=== PATIENT | female | born 1940 | race African-American/Black ===

== ENCOUNTER 2018-06-30 11:58 | Inpatient (IN) | payer MEDICARE, MEDICAID ==
[~2018-06-30] VITALS: Ht 165.1 cm; Wt 79.0 kg
[~2018-06-30 11:58] MED LIST: ALPR-339 PO; AMLO5TAB88 PO; BISA-81 PO; CLON0.3T PO; LOSA100T14 PO
[2018-06-30 12:43] LABS: BASOPHILS % 0.9 % (0.0-2.0); EOSINOPHILS % 3.3 % (0.0-5.0); HEMATOCRIT. 38.5 % (36.0-48.0); HEMOGLOBIN. 12.4 g/dL (12.0-16.0); LYMPHOCYTES % 36.3 % (20.0-50.0); MEAN CORPUSCULAR HEMOGLOBIN 28.3 pg (28.0-32.0); MEAN CORPUSCULAR VOLUME 87.6 fL (81.0-99.0); MONOCYTES % 8.2 % (2.0-8.0); NEUTROPHILS % 51.3 % (40.0-76.0); PLATELET 212 x1000/uL (130-400); RED BLOOD CELL COUNT 4.39 mill/uL (4.2-5.4); RED CELL DISTRIBUTION WIDTH 13.8 % (11.6-14.6)
[2018-06-30 12:48] LABS: CHLORIDE 106 mEq/L (98-107)
[2018-06-30 12:49] LABS: PROTHROMBIN TIME 9.8 sec (9.1-11.1)
[2018-06-30 12:57] LABS: LDL CHOLESTEROL 177 mg/dL (5-100)
[2018-06-30] MEDS ORDERED: LABETALOL HCL 20MG/4ML CARPUJECT IV ONE (13:00)
[2018-06-30] MEDS ORDERED: LABETALOL 5MG/ML SYR 20 MG/4 ML SYRINGE IV NR (13:15)
[2018-06-30 14:22] LABS: CLARITY URINE CLEAR (CLEAR); COLOR URINE YELLOW (YELLOW); KETONES URINE NEGATIVE (NEGATIVE); LEUKOCYTE ESTERASE URINE NEGATIVE (NEGATIVE); NITRITE URINE NEGATIVE (NEGATIVE); OCCULT BLOOD URINE NEGATIVE (NEGATIVE); PROTEIN URINE TRACE (NEGATIVE); SPECIFIC GRAVITY URINE 1.006 (1.005-1.030); UROBILINOGEN URINE 0.2 E.U./dL (0.2-1.0)
[2018-06-30] MEDS ORDERED: AMLODIPINE 5MG TABLET PO NR (14:45)
[2018-06-30] MEDS ORDERED: CLONIDINE 0.2MG TABLET PO NR (14:45)
[2018-06-30] MEDS ORDERED: ONDANSETRON HCL 4MG/2ML INJ IV PRN (14:45)
[2018-06-30] MEDS ORDERED: LOSARTAN POTASSIUM 100 MG TABLET PO SCH (14:45)
[2018-06-30] MEDS: AMLODIPINE 5MG TABLET PO SCH (21:04)
[2018-06-30 22:00] VITALS: BP_SYST 167; BP_SYST 171; BP_DIAS 79; BP_DIAS 80
[2018-06-30] MEDS ORDERED: CLONIDINE 0.3MG TABLET PO SCH (22:00)
[2018-06-30] MEDS: LOSARTAN POTASSIUM 100 MG TABLET PO SCH (22:35)
[2018-06-30] MEDS: CLONIDINE 0.2MG TABLET PO SCH (22:36)
[2018-06-30 23:25] VITALS: BP 161/88
[2018-06-30] MEDS: ACETAMINOPHEN 325MG TABLET PO PRN (23:27)
[2018-07-01] VITALS (68 sets, daily range): BP systolic 93–212; BP diastolic 26–101
[2018-07-01] MEDS ORDERED: AMLO10TA80 PO (02:37)
[2018-07-01] MEDS ORDERED: ASPI-1158 PO (02:37)
[2018-07-01] MEDS ORDERED: FURO20TA4 PO (02:37)
[2018-07-01] MEDS ORDERED: NAPR-681 PO (02:37)
[2018-07-01] MEDS ORDERED: ALBU18HF2 IH (02:37)
[2018-07-01] MEDS ORDERED: LIDO700A30 TP (02:37)
[2018-07-01 05:57] LABS: BASOPHILS % 0.6 % (0.0-2.0); EOSINOPHILS % 3.6 % (0.0-5.0); HEMOGLOBIN. 12.2 g/dL (12.0-16.0); LYMPHOCYTES % 35.7 % (20.0-50.0); MEAN CORPUSCULAR HEMOGLOBIN 28.7 pg (28.0-32.0); MEAN CORPUSCULAR VOLUME 87.1 fL (81.0-99.0); MEAN PLATELET VOLUME 7.4 fl (7.4-10.4); MONOCYTES % 9.5 % (2.0-8.0); NEUTROPHILS % 50.6 % (40.0-76.0); PLATELET 200 x1000/uL (130-400); RED BLOOD CELL COUNT 4.24 mill/uL (4.2-5.4); RED CELL DISTRIBUTION WIDTH 13.9 % (11.6-14.6)
[2018-07-01] MEDS ORDERED: NICARDIPINE 50 MG in SODIUM CHLORIDE 0.9% 230 ML IV PRN (06:30)
[2018-07-01 06:32] LABS: CHLORIDE 108 mEq/L (98-107)
[2018-07-01 06:39] LABS: LDL CHOLESTEROL 161 mg/dL (5-100)
[2018-07-01 06:41] LABS: HDL CHOLESTEROL 55 mg/dL (40-59)
[2018-07-01] MEDS: CLONIDINE 0.2MG TABLET PO SCH ×3 (07:17→21:55)
[2018-07-01] MEDS ORDERED: ASPIRIN 325MG EC TABLET PO SCH (09:00)
[2018-07-01] MEDS: AMLODIPINE 5MG TABLET PO SCH ×2 (09:45→20:25)
[2018-07-01] MEDS: CLOPIDOGREL 75MG TABLET PO SCH (09:45)
[2018-07-01] MEDS: LOSARTAN POTASSIUM 100 MG TABLET PO SCH (09:46)
[2018-07-01 09:50] LABS: T4 FREE 1.05 ng/dL (0.76-1.46)
[2018-07-01 10:21] LABS: FOLIC ACID (FOLATE) SERUM 19.6 ng/mL (>5.38)
[2018-07-01] MEDS ORDERED: HYDRALAZINE HCL 25MG TABLET PO SCH (14:00)
[2018-07-01 14:28] LABS: *AMPHETAMINES SCREEN URINE NEGATIVE (NEGATIVE); *BARBITURATES SCREEN URINE NEGATIVE (NEGATIVE); *BENZODIAZEPINES SCREEN URINE NEGATIVE (NEGATIVE); *COCAINE SCREEN URINE NEGATIVE (NEGATIVE); METHADONE URINE SCREEN NEGATIVE (NEGATIVE); OPIATES URINE SCREEN NEGATIVE (NEGATIVE)
[2018-07-01 14:29] LABS: CANNABINOID URINE SCREEN NEGATIVE (NEGATIVE); PHENCYCLIDINE URINE SCREEN NEGATIVE (NEGATIVE)
[2018-07-01] MEDS: ACETAMINOPHEN 325MG TABLET PO PRN (20:23)
[2018-07-01] MEDS: ALPRAZOLAM 0.25 MG TABLET PO PRN (20:24)
[2018-07-01] MEDS: ATORVASTATIN CALCIUM 20MG TABLET PO SCH (21:55)
[2018-07-02] VITALS (72 sets, daily range): BP systolic 97–210; BP diastolic 48–93
[2018-07-02] MEDS: CLONIDINE 0.1MG TABLET PO PRN (04:48)
[2018-07-02 05:49] LABS: BASOPHILS % 0.8 % (0.0-2.0); EOSINOPHILS % 3.9 % (0.0-5.0); HEMATOCRIT. 37.9 % (36.0-48.0); HEMOGLOBIN. 12.4 g/dL (12.0-16.0); LYMPHOCYTES % 30.4 % (20.0-50.0); MEAN CORPUSCULAR HEMOGLOBIN 28.6 pg (28.0-32.0); MEAN CORPUSCULAR VOLUME 87.6 fL (81.0-99.0); MEAN PLATELET VOLUME 7.8 fl (7.4-10.4); MONOCYTES % 9.7 % (2.0-8.0); NEUTROPHILS % 55.2 % (40.0-76.0); PLATELET 195 x1000/uL (130-400); RED BLOOD CELL COUNT 4.32 mill/uL (4.2-5.4); RED CELL DISTRIBUTION WIDTH 13.7 % (11.6-14.6)
[2018-07-02] MEDS: CLONIDINE 0.2MG TABLET PO SCH (06:00)
[2018-07-02] MEDS: CLOPIDOGREL 75MG TABLET PO SCH (09:08)
[2018-07-02] MEDS: LOSARTAN POTASSIUM 50 MG TABLET PO SCH (09:17)
[2018-07-02] MEDS: AMLODIPINE 2.5MG TABLET PO SCH ×2 (09:17→20:49)
[2018-07-02] MEDS ORDERED: LACTULOSE 20G/30ML UDC PO PRN (10:45)
[2018-07-02] MEDS: CLONIDINE 0.1MG TABLET PO SCH ×2 (14:41→22:33)
[2018-07-02] MEDS: DOCUSATE SODIUM 100MG CAPSULE PO SCH (17:03)
[2018-07-02] MEDS: ATORVASTATIN CALCIUM 20MG TABLET PO SCH (20:48)
[2018-07-02] MEDS: ACETAMINOPHEN 325MG TABLET PO PRN (20:48)
[2018-07-02] MEDS: ALPRAZOLAM 0.25 MG TABLET PO PRN (20:50)
[2018-07-03] VITALS (45 sets, daily range): BP systolic 121–206; BP diastolic 49–126
[2018-07-03] MEDS: CLONIDINE 0.1MG TABLET PO SCH ×3 (05:09→20:50)
[2018-07-03] MEDS: ALPRAZOLAM 0.25 MG TABLET PO PRN ×2 (05:17→22:48)
[2018-07-03 05:20] LABS: BASOPHILS % 0.8 % (0.0-2.0); EOSINOPHILS % 3.6 % (0.0-5.0); HEMATOCRIT. 36.6 % (36.0-48.0); HEMOGLOBIN. 12.1 g/dL (12.0-16.0); LYMPHOCYTES % 30.9 % (20.0-50.0); MEAN CORPUSCULAR HEMOGLOBIN 28.8 pg (28.0-32.0); MEAN CORPUSCULAR VOLUME 87.3 fL (81.0-99.0); MEAN PLATELET VOLUME 7.7 fl (7.4-10.4); MONOCYTES % 9.6 % (2.0-8.0); NEUTROPHILS % 55.1 % (40.0-76.0); PLATELET 197 x1000/uL (130-400); RED CELL DISTRIBUTION WIDTH 13.9 % (11.6-14.6)
[2018-07-03] MEDS: DOCUSATE SODIUM 100MG CAPSULE PO SCH ×2 (09:22→17:40)
[2018-07-03] MEDS: LOSARTAN POTASSIUM 50 MG TABLET PO SCH (09:22)
[2018-07-03] MEDS: CLOPIDOGREL 75MG TABLET PO SCH (09:23)
[2018-07-03] MEDS: AMLODIPINE 2.5MG TABLET PO SCH ×2 (09:23→20:50)
[2018-07-03] MEDS: CLONIDINE 0.1MG TABLET PO PRN (11:43)
[2018-07-03] MEDS: ACETAMINOPHEN 325MG TABLET PO PRN (11:57)
[2018-07-03] MEDS: ASPIRIN 81MG EC TABLET PO SCH (14:33)
[2018-07-03] MEDS: ATORVASTATIN CALCIUM 40MG TABLET PO SCH (20:50)
[2018-07-04] VITALS (34 sets, daily range): BP systolic 109–170; BP diastolic 49–121
[2018-07-04] MEDS: CLONIDINE 0.1MG TABLET PO PRN (03:36)
[2018-07-04 05:31] LABS: BASOPHILS % 0.9 % (0.0-2.0); EOSINOPHILS % 2.8 % (0.0-5.0); HEMATOCRIT. 37.5 % (36.0-48.0); HEMOGLOBIN. 12.3 g/dL (12.0-16.0); LYMPHOCYTES % 31.3 % (20.0-50.0); MEAN CORPUSCULAR HEMOGLOBIN 28.7 pg (28.0-32.0); MEAN CORPUSCULAR VOLUME 87.4 fL (81.0-99.0); MONOCYTES % 10.7 % (2.0-8.0); NEUTROPHILS % 54.3 % (40.0-76.0); PLATELET 195 x1000/uL (130-400); RED BLOOD CELL COUNT 4.29 mill/uL (4.2-5.4); RED CELL DISTRIBUTION WIDTH 13.7 % (11.6-14.6)
[2018-07-04] MEDS: CLONIDINE 0.1MG TABLET PO SCH ×3 (06:32→21:22)
[2018-07-04] MEDS: DOCUSATE SODIUM 100MG CAPSULE PO SCH ×2 (09:04→16:56)
[2018-07-04] MEDS: LOSARTAN POTASSIUM 50 MG TABLET PO SCH (09:04)
[2018-07-04] MEDS: ASPIRIN 81MG EC TABLET PO SCH (09:04)
[2018-07-04] MEDS: CLOPIDOGREL 75MG TABLET PO SCH (09:04)
[2018-07-04] MEDS: AMLODIPINE 2.5MG TABLET PO SCH ×2 (09:07→20:39)
[2018-07-04] MEDS: ALPRAZOLAM 0.25 MG TABLET PO PRN ×2 (12:57→23:44)
[2018-07-04] MEDS: ACETAMINOPHEN 325MG TABLET PO PRN (16:57)
[2018-07-04] MEDS: LACTULOSE 20G/30ML UDC PO SCH ×2 (17:43→20:39)
[2018-07-04] MEDS: ATORVASTATIN CALCIUM 40MG TABLET PO SCH (20:39)
[2018-07-04] MEDS ORDERED: POLYETHYLENE GLYCOL 3350 (17GM) 1 DOSE PACK PO SCH (21:00)
[2018-07-05] VITALS (8 sets, daily range): BP systolic 122–191; BP diastolic 57–96
[2018-07-05] MEDS: CLONIDINE 0.1MG TABLET PO SCH ×2 (05:23→13:05)
[2018-07-05 06:06] LABS: BASOPHILS % 0.9 % (0.0-2.0); EOSINOPHILS % 2.4 % (0.0-5.0); HEMATOCRIT. 37.6 % (36.0-48.0); HEMOGLOBIN. 12.2 g/dL (12.0-16.0); LYMPHOCYTES % 28.6 % (20.0-50.0); MEAN CORPUSCULAR HEMOGLOBIN 28.5 pg (28.0-32.0); MEAN CORPUSCULAR VOLUME 87.6 fL (81.0-99.0); MEAN PLATELET VOLUME 7.9 fl (7.4-10.4); MONOCYTES % 9.3 % (2.0-8.0); NEUTROPHILS % 58.8 % (40.0-76.0); PLATELET 196 x1000/uL (130-400); RED BLOOD CELL COUNT 4.29 mill/uL (4.2-5.4); RED CELL DISTRIBUTION WIDTH 13.8 % (11.6-14.6)
[2018-07-05] MEDS: LACTULOSE 20G/30ML UDC PO SCH (08:35)
[2018-07-05] MEDS: CLOPIDOGREL 75MG TABLET PO SCH (08:39)
[2018-07-05] MEDS: DOCUSATE SODIUM 100MG CAPSULE PO SCH (08:39)
[2018-07-05] MEDS: ASPIRIN 81MG EC TABLET PO SCH (08:39)
[2018-07-05] MEDS: LOSARTAN POTASSIUM 50 MG TABLET PO SCH (08:39)
[2018-07-05] MEDS: AMLODIPINE 2.5MG TABLET PO SCH (08:40)
[2018-07-05] MEDS: ALPRAZOLAM 0.25 MG TABLET PO PRN (13:05)
[2018-07-05] MEDS: ACETAMINOPHEN 325MG TABLET PO PRN (13:05)
== END 2018-07-05 15:35 | disposition home health service (06) | DRG 304 ==
LOC: ER 11:58 → 3WST 13:31 → EDBEDREQ 13:44 → ENRESERV 20:14 → MICUSO 07-01 06:30 → 3WST 07-04 13:55
PROVIDERS: ADMIT Internal Medicine Nephrology; ATTEND Internal Medicine Nephrology
DX: I16.1 Hypertensive emergency (principal); I63.9 Cerebral infarction, unspecified; G81.94 Hemiplegia, unspecified affecting left nondominant side; R47.01 Aphasia; E78.00 Pure hypercholesterolemia, unspecified; E78.5 Hyperlipidemia, unspecified; N18.9 Chronic kidney disease, unspecified; E11.22 Type 2 diabetes mellitus with diabetic chronic kidney disease; G90.8 Other disorders of autonomic nervous system; I95.9 Hypotension, unspecified; I13.10 Hypertensive heart and chronic kidney disease without heart failure, with stage 1 through stage 4 chronic kidney disease, or unspecified chronic kidney disease; I25.10 Atherosclerotic heart disease of native coronary artery without angina pectoris; J44.9 Chronic obstructive pulmonary disease, unspecified; K80.20 Calculus of gallbladder without cholecystitis without obstruction; R13.10 Dysphagia, unspecified; R47.1 Dysarthria and anarthria; Z86.73 Personal history of transient ischemic attack (TIA), and cerebral infarction without residual deficits; Z87.891 Personal history of nicotine dependence; Z95.0 Presence of cardiac pacemaker; Z88.5 Allergy status to narcotic agent; Z88.6 Allergy status to analgesic agent; Z79.82 Long term (current) use of aspirin; Z79.899 Other long term (current) drug therapy; Z87.440 Personal history of urinary (tract) infections
CPT/HCPCS: 36415; 71045; 74176; 76770; 80048; 80061; 80305; 82607; 82746; 82962; 83036; 83721; 84439; 84443; 84481; 84484; 87077; 92610; 93005; 93306; 93880; 93970; 96374; 97112; 97116; 97163; 97166; 97530; 97535; 99291; J3490; J7050

== ENCOUNTER 2021-02-26 20:08 | Emergency (ER) | payer MEDICARE, MEDICAID ==
[~2021-02-26] VITALS: Ht 162.6 cm; Wt 65.0 kg
[~2021-02-26 20:08] MED LIST changes: +ALBU18HF2 IH; +ALPR-340 PO; +AMLO10TA80 PO; +ASPI-1406 PO; +CHOL200074 PO; +CLON0.2T PO; +DOCU100T PO; +FURO20TA4 PO; +LIDO700A30 TP; -LOSA100T14 PO; +LOSA100T32 PO; +LOSA50TA41 PO; +NAPR-681 PO; +NITR0.4T49 SL; +VIT1TABL86 MT
[2021-02-26] MEDS ORDERED: ALPRAZOLAM 0.25 MG TABLET PO ONE (21:15)
[2021-02-26 21:31] LABS: BASOPHILS % 0.6 % (0.0-2.0); EOSINOPHILS % 1.6 % (0.0-5.0); HEMATOCRIT. 34.8 % (36.0-48.0); HEMOGLOBIN. 11.7 g/dL (12.0-16.0); LYMPHOCYTES % 18.6 % (20.0-50.0); MEAN CORPUSCULAR HEMOGLOBIN 29.7 pg (28.0-32.0); MEAN CORPUSCULAR VOLUME 88.6 fL (81.0-99.0); MEAN PLATELET VOLUME 6.9 fl (7.4-10.4); MONOCYTES % 8.9 % (2.0-8.0); NEUTROPHILS % 70.3 % (40.0-76.0); PLATELET 183 x1000/uL (130-400); RED BLOOD CELL COUNT 3.93 mill/uL (4.2-5.4); RED CELL DISTRIBUTION WIDTH 13.6 % (11.6-14.6)
[2021-02-26 21:35] LABS: CHLORIDE 98 mEq/L (98-107)
[2021-02-26 23:00] VITALS: BP 139/86
== END 2021-02-26 23:45 | disposition home or self-care (01) ==
LOC: ER 20:08
DX: R53.83 Other fatigue (principal); I10 Essential (primary) hypertension; Z88.5 Allergy status to narcotic agent; Z79.899 Other long term (current) drug therapy; Z86.73 Personal history of transient ischemic attack (TIA), and cerebral infarction without residual deficits
CPT/HCPCS: 36415; 80053; 84484; 85025; 93005; 99284

== ENCOUNTER 2021-08-17 18:14 | Emergency (ER) | payer MEDICARE, MEDICAID ==
[~2021-08-17] VITALS: Ht 170.2 cm; Wt 66.0 kg
[2021-08-17] MEDS ORDERED: METOCLOPRAMIDE HCL 10MG/2ML VIAL IV STA (19:00)
[2021-08-17] MEDS ORDERED: SODIUM CHLORIDE 0.9% 1,000 ML IV ONE (19:00)
[2021-08-17 20:39] LABS: BASOPHILS % 0.4 % (0.0-2.0); EOSINOPHILS % 0.2 % (0.0-5.0); HEMATOCRIT. 36.7 % (36.0-48.0); HEMOGLOBIN. 12.6 g/dL (12.0-16.0); LYMPHOCYTES % 8.5 % (20.0-50.0); MEAN CORPUSCULAR HEMOGLOBIN 30.6 pg (28.0-32.0); MEAN CORPUSCULAR VOLUME 88.9 fL (81.0-99.0); MEAN PLATELET VOLUME 7.6 fl (7.4-10.4); MONOCYTES % 6.6 % (2.0-8.0); NEUTROPHILS % 84.3 % (40.0-76.0); PLATELET 179 x1000/uL (130-400); RED BLOOD CELL COUNT 4.13 mill/uL (4.2-5.4); RED CELL DISTRIBUTION WIDTH 13.5 % (11.6-14.6)
[2021-08-17] MEDS ORDERED: METOCLOPRAMIDE HCL 10MG/2ML VIAL IV NR (20:45)
[2021-08-17 21:23] LABS: CHLORIDE 107 mEq/L (98-107)
[2021-08-17] MEDS ORDERED: HYDRALAZINE 20MG/ML VIAL IV ONE (21:45)
[2021-08-17] MEDS ORDERED: MAGNESIUM CITRATE 300ML SOLUTION PO ONE (21:45)
[2021-08-17 22:30] VITALS: BP 175/76
[2021-08-18 07:14] LABS: CLARITY URINE CLEAR (CLEAR); COLOR URINE YELLOW (YELLOW); KETONES URINE NEGATIVE (NEGATIVE); LEUKOCYTE ESTERASE URINE NEGATIVE (NEGATIVE); NITRITE URINE NEGATIVE (NEGATIVE); OCCULT BLOOD URINE NEGATIVE (NEGATIVE); PH URINE 5.5 (4.5-8.0); PROTEIN URINE NEGATIVE (NEGATIVE); SPECIFIC GRAVITY URINE 1.007 (1.005-1.030); UROBILINOGEN URINE 0.2 E.U./dL (0.2-1.0)
== END 2021-08-17 22:30 | disposition home or self-care (01) ==
LOC: ER 18:14
DX: K59.00 Constipation, unspecified (principal); I11.0 Hypertensive heart disease with heart failure; I50.9 Heart failure, unspecified; Z95.0 Presence of cardiac pacemaker; Z86.73 Personal history of transient ischemic attack (TIA), and cerebral infarction without residual deficits
CPT/HCPCS: 36415; 74176; 80053; 81003; 83690; 84484; 85025; 96361; 96374; 96375; 99284; J0360; J2765; J7030

== ENCOUNTER 2022-01-01 13:10 | Inpatient (IN) | payer MEDICARE, MEDICAID ==
[~2022-01-01] VITALS: Ht 165.1 cm; Wt 64.4 kg
[~2022-01-01 13:10] MED LIST changes: +CLOP75TA33 PO
[2022-01-01] MEDS ORDERED: ALPRAZOLAM 0.25 MG TABLET PO ONE (14:00)
[2022-01-01 14:41] LABS: EOSINOPHILS % 3.4 % (0.0-5.0); HEMATOCRIT. 33.8 % (36.0-48.0); HEMOGLOBIN. 11.2 g/dL (12.0-16.0); LYMPHOCYTES % 19.4 % (20.0-50.0); MEAN CORPUSCULAR HEMOGLOBIN 28.7 pg (28.0-32.0); MEAN CORPUSCULAR VOLUME 87.1 fL (81.0-99.0); MEAN PLATELET VOLUME 7.6 fl (7.4-10.4); MONOCYTES % 10.9 % (2.0-8.0); NEUTROPHILS % 65.3 % (40.0-76.0); PLATELET 186 x1000/uL (130-400); RED BLOOD CELL COUNT 3.88 mill/uL (4.2-5.4); RED CELL DISTRIBUTION WIDTH 13.4 % (11.6-14.6)
[2022-01-01 14:57] LABS: CHLORIDE 106 mEq/L (98-107)
[2022-01-01] MEDS ORDERED: ONDANSETRON HCL 4MG/2ML INJ IV PRN (16:15)
[2022-01-01] MEDS ORDERED: ACETAMINOPHEN 325MG TABLET PO PRN (16:15)
[2022-01-01] MEDS: CLONIDINE 0.3MG TABLET PO SCH (18:01)
[2022-01-01] MEDS: ENOXAPARIN 40MG/0.4ML SYR SUBCUT SCH (18:02)
[2022-01-01] MEDS: NITROGLYCERIN OINT 1GM/INCH UDPKT TD SCH ×2 (18:02→22:00)
[2022-01-01] MEDS: CLOPIDOGREL 75MG TABLET PO NR (18:02)
[2022-01-01 19:19] LABS: CLARITY URINE CLEAR (CLEAR); COLOR URINE YELLOW (YELLOW); KETONES URINE NEGATIVE (NEGATIVE); LEUKOCYTE ESTERASE URINE NEGATIVE (NEGATIVE); NITRITE URINE NEGATIVE (NEGATIVE); OCCULT BLOOD URINE NEGATIVE (NEGATIVE); PROTEIN URINE NEGATIVE (NEGATIVE); SPECIFIC GRAVITY URINE 1.004 (1.005-1.030); UROBILINOGEN URINE 0.2 E.U./dL (0.2-1.0)
[2022-01-01 19:44] LABS: *AMPHETAMINES SCREEN URINE NEGATIVE (NEGATIVE); *BARBITURATES SCREEN URINE NEGATIVE (NEGATIVE); *BENZODIAZEPINES SCREEN URINE NEGATIVE (NEGATIVE); *COCAINE SCREEN URINE NEGATIVE (NEGATIVE); CANNABINOID URINE SCREEN NEGATIVE (NEGATIVE); METHADONE URINE SCREEN NEGATIVE (NEGATIVE); OPIATES URINE SCREEN NEGATIVE (NEGATIVE); PHENCYCLIDINE URINE SCREEN NEGATIVE (NEGATIVE)
[2022-01-01] MEDS: AMLODIPINE 5MG TABLET PO SCH (21:20)
[2022-01-01] MEDS: TRAMADOL 50MG TABLET PO PRN (21:24)
[2022-01-01 21:40] VITALS: BP 154/73
[2022-01-01] MEDS: ALPRAZOLAM 0.25 MG TABLET PO PRN (22:00)
[2022-01-01 22:19] VITALS: BP 154/73
[2022-01-02] MEDS: CLONIDINE 0.3MG TABLET PO SCH ×3 (00:28→16:30)
[2022-01-02 00:35] VITALS: BP 129/70
[2022-01-02 01:28] LABS: CREATINE KINASE 75 IU/L (26-192)
[2022-01-02 04:00] VITALS: BP 124/69
[2022-01-02] MEDS: NITROGLYCERIN OINT 1GM/INCH UDPKT TD SCH ×3 (05:25→21:00)
[2022-01-02 08:00] VITALS: BP 110/66
[2022-01-02 08:05] LABS: BASOPHILS % 0.8 % (0.0-2.0); EOSINOPHILS % 5.4 % (0.0-5.0); HEMATOCRIT. 32.7 % (36.0-48.0); LYMPHOCYTES % 25.3 % (20.0-50.0); MEAN CORPUSCULAR HEMOGLOBIN 29.2 pg (28.0-32.0); MEAN CORPUSCULAR VOLUME 86.9 fL (81.0-99.0); MEAN PLATELET VOLUME 7.8 fl (7.4-10.4); MONOCYTES % 13.4 % (2.0-8.0); NEUTROPHILS % 55.1 % (40.0-76.0); PLATELET 174 x1000/uL (130-400); RED BLOOD CELL COUNT 3.76 mill/uL (4.2-5.4); RED CELL DISTRIBUTION WIDTH 13.3 % (11.6-14.6)
[2022-01-02 08:24] LABS: CHLORIDE 106 mEq/L (98-107)
[2022-01-02 08:45] LABS: CREATINE KINASE 48 IU/L (26-192)
[2022-01-02] MEDS: AMLODIPINE 5MG TABLET PO SCH ×2 (09:00→21:00)
[2022-01-02] MEDS: ASPIRIN 81MG EC TABLET PO SCH (09:18)
[2022-01-02] MEDS: LOSARTAN POTASSIUM 100 MG TABLET PO SCH (09:18)
[2022-01-02] MEDS: FUROSEMIDE 20MG TABLET PO SCH (09:18)
[2022-01-02] MEDS: CLOPIDOGREL 75MG TABLET PO SCH (09:19)
[2022-01-02] MEDS ORDERED: LACTULOSE 20G/30ML UDC PO SCH (11:15)
[2022-01-02] MEDS: DOCUSATE SODIUM 250MG CAPSULE PO SCH (11:57)
[2022-01-02 12:00] VITALS: BP 144/67
[2022-01-02 15:04] LABS: T4 FREE 1.27 ng/dL (0.76-1.46)
[2022-01-02 16:00] VITALS: BP 134/70
[2022-01-02] MEDS: ENOXAPARIN 40MG/0.4ML SYR SUBCUT SCH (16:29)
[2022-01-02] MEDS: CLOPIDOGREL 75MG TABLET PO NR (16:31)
[2022-01-02] MEDS: ALPRAZOLAM 0.25 MG TABLET PO PRN (17:53)
[2022-01-02 20:00] VITALS: BP 152/68
[2022-01-02] MEDS: TRAMADOL 50MG TABLET PO PRN (20:59)
[2022-01-03 00:09] VITALS: BP 143/76
[2022-01-03] MEDS: CLONIDINE 0.3MG TABLET PO SCH (00:49)
[2022-01-03 04:00] VITALS: BP 99/56
[2022-01-03] MEDS: NITROGLYCERIN OINT 1GM/INCH UDPKT TD SCH ×3 (05:30→21:11)
[2022-01-03 06:36] LABS: BASOPHILS % 0.8 % (0.0-2.0); HEMATOCRIT. 34.7 % (36.0-48.0); HEMOGLOBIN. 11.6 g/dL (12.0-16.0); LYMPHOCYTES % 30.5 % (20.0-50.0); MEAN CORPUSCULAR HEMOGLOBIN 28.9 pg (28.0-32.0); MEAN CORPUSCULAR VOLUME 86.5 fL (81.0-99.0); MEAN PLATELET VOLUME 7.8 fl (7.4-10.4); NEUTROPHILS % 55.7 % (40.0-76.0); PLATELET 193 x1000/uL (130-400); RED BLOOD CELL COUNT 4.01 mill/uL (4.2-5.4); RED CELL DISTRIBUTION WIDTH 13.6 % (11.6-14.6)
[2022-01-03 08:00] VITALS: BP 114/62
[2022-01-03] MEDS: CLOPIDOGREL 75MG TABLET PO SCH (08:25)
[2022-01-03] MEDS: DOCUSATE SODIUM 250MG CAPSULE PO SCH (08:25)
[2022-01-03] MEDS: ALPRAZOLAM 0.25 MG TABLET PO PRN ×2 (08:26→18:30)
[2022-01-03] MEDS: LOSARTAN POTASSIUM 100 MG TABLET PO SCH (08:26)
[2022-01-03] MEDS: FUROSEMIDE 20MG TABLET PO SCH (08:27)
[2022-01-03] MEDS: AMLODIPINE 5MG TABLET PO SCH ×2 (08:27→21:11)
[2022-01-03] MEDS: TRAMADOL 50MG TABLET PO PRN ×2 (08:28→18:32)
[2022-01-03] MEDS: ASPIRIN 81MG EC TABLET PO SCH (08:28)
[2022-01-03 12:00] VITALS: BP 111/63
[2022-01-03] MEDS: LEVOTHYROXINE SODIUM 25MCG TABLET PO SCH (12:25)
[2022-01-03 16:00] VITALS: BP 100/59
[2022-01-03] MEDS ORDERED: NALOXONE HCL 0.4MG/ML VIAL IV PRN (18:15)
[2022-01-03] MEDS: ENOXAPARIN 40MG/0.4ML SYR SUBCUT SCH (18:32)
[2022-01-03 20:00] VITALS: BP 118/70
[2022-01-04] VITALS: BP 112/57
[2022-01-04] MEDS: TRAMADOL 50MG TABLET PO PRN ×2 (00:44→09:30)
[2022-01-04 04:00] VITALS: BP 102/62
[2022-01-04] MEDS: ALPRAZOLAM 0.5 MG TABLET PO PRN ×2 (04:43→14:48)
[2022-01-04] MEDS: NITROGLYCERIN OINT 1GM/INCH UDPKT TD SCH ×2 (05:19→13:06)
[2022-01-04] MEDS: LEVOTHYROXINE SODIUM 25MCG TABLET PO SCH (06:40)
[2022-01-04 08:00] VITALS: BP 99/60
[2022-01-04] MEDS: AMLODIPINE 5MG TABLET PO SCH (09:00)
[2022-01-04] MEDS ORDERED: ENOXAPARIN 30MG/0.3ML SYR SUBCUT SCH (09:00)
[2022-01-04] MEDS: ASPIRIN 81MG EC TABLET PO SCH (09:30)
[2022-01-04] MEDS: DOCUSATE SODIUM 250MG CAPSULE PO SCH (09:30)
[2022-01-04] MEDS: CLOPIDOGREL 75MG TABLET PO SCH (09:30)
[2022-01-04] MEDS: LOSARTAN POTASSIUM 100 MG TABLET PO SCH (09:30)
[2022-01-04 11:57] LABS: BASOPHILS % 0.6 % (0.0-2.0); EOSINOPHILS % 3.8 % (0.0-5.0); HEMATOCRIT. 35.2 % (36.0-48.0); HEMOGLOBIN. 11.5 g/dL (12.0-16.0); LYMPHOCYTES % 24.3 % (20.0-50.0); MEAN CORPUSCULAR HEMOGLOBIN 28.6 pg (28.0-32.0); MEAN CORPUSCULAR VOLUME 87.2 fL (81.0-99.0); MEAN PLATELET VOLUME 7.8 fl (7.4-10.4); MONOCYTES % 11.1 % (2.0-8.0); NEUTROPHILS % 60.2 % (40.0-76.0); PLATELET 185 x1000/uL (130-400); RED BLOOD CELL COUNT 4.04 mill/uL (4.2-5.4); RED CELL DISTRIBUTION WIDTH 13.5 % (11.6-14.6)
[2022-01-04 12:00] VITALS: BP 106/53
[2022-01-04 16:08] VITALS: BP 99/60
== END 2022-01-04 17:30 | disposition home or self-care (01) | DRG 305 ==
LOC: ER 13:27 → EDBEDREQ 14:58 → 7WST 15:54 → EDBEDREQ 16:00 → EDBEDREQTM 16:00 → ENRESERV 20:44
PROVIDERS: ADMIT Internal Medicine Nephrology; ATTEND Internal Medicine Nephrology
PROC: 4B02XSZ Measurement of Cardiac Pacemaker, External Approach (ICD-10-PCS; principal; 2022-01-02)
DX: I16.0 Hypertensive urgency (principal); I25.10 Atherosclerotic heart disease of native coronary artery without angina pectoris; K59.04 Chronic idiopathic constipation; I12.9 Hypertensive chronic kidney disease with stage 1 through stage 4 chronic kidney disease, or unspecified chronic kidney disease; J44.9 Chronic obstructive pulmonary disease, unspecified; G40.909 Epilepsy, unspecified, not intractable, without status epilepticus; F41.9 Anxiety disorder, unspecified; E78.5 Hyperlipidemia, unspecified; E03.9 Hypothyroidism, unspecified; E05.90 Thyrotoxicosis, unspecified without thyrotoxic crisis or storm; I49.5 Sick sinus syndrome; N18.9 Chronic kidney disease, unspecified; Z88.8 Allergy status to other drugs, medicaments and biological substances; Z79.899 Other long term (current) drug therapy; Z79.02 Long term (current) use of antithrombotics/antiplatelets; Z98.61 Coronary angioplasty status; Z95.810 Presence of automatic (implantable) cardiac defibrillator; Z86.73 Personal history of transient ischemic attack (TIA), and cerebral infarction without residual deficits
CPT/HCPCS: 36415; 71045; 74018; 80048; 80053; 80305; 81003; 82550; 83735; 83880; 84439; 84443; 84481; 84484; 85025; 93005; 93306; 93970; 99285; J1650

== ENCOUNTER 2023-06-13 07:23 | Inpatient (IN) | payer MEDICARE, MEDICAID ==
[~2023-06-13] VITALS: Ht 165.1 cm; Wt 73.0 kg
[~2023-06-13 07:23] MED LIST changes: +ACET-2708 MT; +ALBU6.7H15 INH; +ALBU90AE IH; -ALPR-340 PO; -AMLO10TA80 PO; -ASPI-1406 PO; +ASPI-1497 PO; -BISA-81 PO; -CHOL200074 PO; -CLON0.3T PO; -CLOP75TA33 PO; -DOCU100T PO; +FURO-152 PO; -FURO20TA4 PO; +GUAI600T26 MT; +HYDR25TA78 PO; -LIDO700A30 TP; +LORA-249 MT; -LOSA100T32 PO; -LOSA50TA41 PO; -NAPR-681 PO; -NITR0.4T49 SL; +TOPUD MT; -VIT1TABL86 MT
[2023-06-13 09:13] LABS: CLARITY URINE CLEAR (CLEAR); COLOR URINE YELLOW (YELLOW); GLUCOSE URINE NEGATIVE (NEGATIVE); KETONES URINE NEGATIVE (NEGATIVE); LEUKOCYTE ESTERASE URINE 1+ (NEGATIVE); NITRITE URINE NEGATIVE (NEGATIVE); OCCULT BLOOD URINE NEGATIVE (NEGATIVE); PROTEIN URINE 1+ (NEGATIVE); SPECIFIC GRAVITY URINE 1.007 (1.005-1.030); UROBILINOGEN URINE 0.2 E.U./dL (0.2-1.0)
[2023-06-13 09:21] LABS: *AMPHETAMINES SCREEN URINE NEGATIVE (NEGATIVE); *BARBITURATES SCREEN URINE NEGATIVE (NEGATIVE); *BENZODIAZEPINES SCREEN URINE NEGATIVE (NEGATIVE); *COCAINE SCREEN URINE NEGATIVE (NEGATIVE); CANNABINOID URINE SCREEN NEGATIVE (NEGATIVE); ECSTASY MDMA SCREEN URINE NEGATIVE (NEGATIVE); METHADONE URINE SCREEN Neg (NEGATIVE); OPIATES URINE SCREEN NEGATIVE (NEGATIVE); PHENCYCLIDINE URINE SCREEN NEGATIVE (NEGATIVE)
[2023-06-13 09:24] LABS: BASOPHILS % 0.9 % (0.0-2.0); EOSINOPHILS % 3.6 % (0.0-5.0); HEMATOCRIT. 39.8 % (36.0-48.0); HEMOGLOBIN. 12.8 g/dL (12.0-16.0); LYMPHOCYTES % 26.2 % (20.0-50.0); MEAN CORPUSCULAR HEMOGLOBIN 28.6 pg (28.0-32.0); MEAN CORPUSCULAR HGB CONC 32.1 g/dL (31.0-37.0); MEAN CORPUSCULAR VOLUME 89.3 fL (81.0-99.0); MEAN PLATELET VOLUME 7.9 fl (7.4-10.4); MONOCYTES % 10.5 % (2.0-8.0); NEUTROPHILS % 58.8 % (40.0-76.0); PLATELET 206 x1000/uL (130-400); RED BLOOD CELL COUNT 4.45 mill/uL (4.2-5.4); RED CELL DISTRIBUTION WIDTH 14.4 % (11.6-14.6); WHITE BLOOD COUNT 3.4 x1000/uL (4.5-11.0)
[2023-06-13 09:25] LABS: BACTERIA URINE NONE SEEN; RBC URINE 0-2 /hpf (0-2); SQUAMOUS EPITHELIAL CELL URINE 1+ /lpf (RARE/1+); WBC URINE 0-2 /hpf (0-2); YEAST URINE NONE SEEN
[2023-06-13 09:35] LABS: INR 0.9; PROTHROMBIN TIME 10.2 sec (9.6-11.0)
[2023-06-13 09:36] LABS: TROPONIN I HIGH SENSITIVITY 8 ng/L (3.0-34)
[2023-06-13] MEDS ORDERED: METHYLPREDNISOLONE SOD SUCC 40MG VIAL IV ONE (10:00)
[2023-06-13] MEDS: DIPHENHYDRAMINE 50MG/ML VIAL IV ONE (10:30)
[2023-06-13] MEDS: METHYLPREDNISOLONE SOD SUCC 125MG/2ML (ACT-O-VIAL) IV NR (10:30)
[2023-06-13] MEDS ORDERED: LABETALOL HCL VIAL 20 MG/4 ML VIAL IV ONE (10:45)
[2023-06-13] MEDS: HYDROMORPHONE HCL/PF 2MG/ML CPJ IV ONE (11:00)
[2023-06-13] MEDS: LABETALOL 5MG/ML SYR 20 MG/4 ML SYRINGE IV NR (11:01)
[2023-06-13] MEDS: HYDRALAZINE 20MG/ML VIAL IV NR (11:38)
[2023-06-13] MEDS: IOHEXOL-350 100 ML BOTTLE ONE ×2 (11:43→15:28)
[2023-06-13 12:24] LABS: ALANINE AMINOTRANSFERASE 14 IU/L (10-49); ASPARTATE AMINOTRANSFERASE 22 IU/L (<34); BILIRUBIN TOTAL 0.8 mg/dL (0.1-1.0); CALCIUM 10.4 mg/dL (8.7-10.4); CARBON DIOXIDE 22 mEq/L (21-32); CHLORIDE 109 mEq/L (98-107); CREATININE 1.2 mg/dL (0.6-1.0); GLUCOSE 94 mg/dL (70-105); POTASSIUM 3.7 mEq/L (3.5-5.1); SODIUM 143 mEq/L (136-145); TROPONIN I HIGH SENSITIVITY 8 ng/L (3.0-34); UREA NITROGEN BLOOD 13 mg/dL (9-23)
[2023-06-13 12:47] LABS: ETHANOL BLOOD < 10 mg/dL (<10)
[2023-06-13] MEDS: LIDOCAINE 5% PATCH TOP SCH (13:30)
[2023-06-13] MEDS: HYDRALAZINE HCL 25MG TABLET PO SCH (14:00)
[2023-06-13] MEDS: ENOXAPARIN 40MG/0.4ML SYR SUBCUT SCH (15:26)
[2023-06-13 17:20] VITALS: BP 190/88; PULSE 85; RESP 18; TEMP 97.8
[2023-06-13 17:35] VITALS: BP 190/88; PULSE 85; RESP 18; TEMP 97
[2023-06-13] MEDS: HYDRALAZINE 20MG/ML VIAL IV PRN (18:13)
[2023-06-13] MEDS: ACETAMINOPHEN 325MG TABLET PO PRN (18:21)
[2023-06-13] MEDS: ALPRAZOLAM 0.25 MG TABLET PO PRN (18:21)
[2023-06-13 20:00] VITALS: BP 145/72; PULSE 84; RESP 18; TEMP 98.6
[2023-06-13 20:18] LABS: TROPONIN I HIGH SENSITIVITY 8 ng/L (3.0-34)
[2023-06-13] MEDS: AMLODIPINE 5MG TABLET PO SCH (21:30)
[2023-06-14] VITALS: BP 173/85; PULSE 97; RESP 18; TEMP 99.7
[2023-06-14] MEDS: HYDROCODONE/ACETAMINOPHEN 10/325MG TABLET PO PRN (01:22)
[2023-06-14 04:00] VITALS: BP 134/77; PULSE 84; RESP 20; TEMP 98.1
[2023-06-14 06:36] LABS: BASOPHILS % 0.2 % (0.0-2.0); HEMATOCRIT. 38.2 % (36.0-48.0); MEAN CORPUSCULAR HEMOGLOBIN 29.9 pg (28.0-32.0); MEAN CORPUSCULAR HGB CONC 33.9 g/dL (31.0-37.0); MEAN PLATELET VOLUME 7.9 fl (7.4-10.4); MONOCYTES % 10.9 % (2.0-8.0); NEUTROPHILS % 72.9 % (40.0-76.0); PLATELET 219 x1000/uL (130-400); RED BLOOD CELL COUNT 4.35 mill/uL (4.2-5.4); RED CELL DISTRIBUTION WIDTH 14.6 % (11.6-14.6); WHITE BLOOD COUNT 5.8 x1000/uL (4.5-11.0)
[2023-06-14 06:53] LABS: ALANINE AMINOTRANSFERASE 13 IU/L (10-49); ALBUMIN 4.8 g/dL (3.2-4.8); ASPARTATE AMINOTRANSFERASE 19 IU/L (<34); CALCIUM 10.5 mg/dL (8.7-10.4); CARBON DIOXIDE 28 mEq/L (21-32); CHLORIDE 104 mEq/L (98-107); CREATININE 1.1 mg/dL (0.6-1.0); GLUCOSE 106 mg/dL (70-105); PROTEIN TOTAL 7.7 g/dL (6.0-8.3); SODIUM 141 mEq/L (136-145); THYROID STIMULATING HORMONE 0.13 uIU/mL (0.55-4.78); TROPONIN I HIGH SENSITIVITY 13 ng/L (3.0-34); UREA NITROGEN BLOOD 19 mg/dL (9-23)
[2023-06-14 08:00] VITALS: BP 152/64; PULSE 79; RESP 17; TEMP 98.8
[2023-06-14] MEDS: ASPIRIN 81MG EC TABLET PO SCH (08:47)
[2023-06-14] MEDS: FUROSEMIDE 20MG TABLET PO SCH (08:47)
[2023-06-14] MEDS ORDERED: CLOPIDOGREL 75MG TABLET PO SCH (09:00)
[2023-06-14 12:00] VITALS: BP 186/84; PULSE 82; RESP 13; TEMP 97.1
[2023-06-14] MEDS: HYDRALAZINE HCL 25MG TABLET PO SCH (14:00)
[2023-06-14] MEDS ORDERED: NALOXONE HCL 0.4MG/ML VIAL IV PRN (15:30)
[2023-06-14 16:00] VITALS: BP 152/65; PULSE 78; RESP 18; TEMP 97.7
[2023-06-14 20:00] VITALS: BP 125/71; PULSE 84; RESP 18; TEMP 99.8
[2023-06-15] VITALS: BP 127/69; PULSE 86; RESP 20; TEMP 98.8
[2023-06-15 04:00] VITALS: BP 116/62; PULSE 75; RESP 20; TEMP 99.7
[2023-06-15 07:44] LABS: BASOPHILS % 0.6 % (0.0-2.0); HEMATOCRIT. 38.5 % (36.0-48.0); HEMOGLOBIN. 12.6 g/dL (12.0-16.0); LYMPHOCYTES % 20.1 % (20.0-50.0); MEAN CORPUSCULAR HEMOGLOBIN 29.4 pg (28.0-32.0); MEAN CORPUSCULAR HGB CONC 32.7 g/dL (31.0-37.0); MEAN CORPUSCULAR VOLUME 89.9 fL (81.0-99.0); MEAN PLATELET VOLUME 8.2 fl (7.4-10.4); MONOCYTES % 9.9 % (2.0-8.0); NEUTROPHILS % 68.4 % (40.0-76.0); PLATELET 248 x1000/uL (130-400); RED BLOOD CELL COUNT 4.28 mill/uL (4.2-5.4); RED CELL DISTRIBUTION WIDTH 14.6 % (11.6-14.6)
[2023-06-15 08:00] VITALS: BP 121/52; PULSE 62; RESP 20; TEMP 97.3
[2023-06-15 09:08] LABS: CALCIUM 10.4 mg/dL (8.7-10.4); CARBON DIOXIDE 26 mEq/L (21-32); CHLORIDE 103 mEq/L (98-107); CREATININE 1.2 mg/dL (0.6-1.0); GLUCOSE 89 mg/dL (70-105); PHOSPHORUS 3.7 mg/dL (2.5-4.9); POTASSIUM 3.8 mEq/L (3.5-5.1); SODIUM 140 mEq/L (136-145); UREA NITROGEN BLOOD 24 mg/dL (9-23)
[2023-06-15 12:00] VITALS: BP 124/68; PULSE 89; RESP 20; TEMP 97.3
[2023-06-15] MEDS ORDERED: IOHEXOL-350 100 ML BOTTLE ONE (12:16)
[2023-06-15] MEDS: ONDANSETRON HCL 4MG/2ML INJ IV PRN (15:21)
[2023-06-15 15:42] VITALS: BP 120/50; PULSE 68; TEMP 98.6; O2SAT 96
[2023-06-15 16:00] VITALS: BP 113/60; PULSE 83; RESP 14; TEMP 98.1
[2023-07-18] MEDS ORDERED: HYDR50TA40 MT (06:03)
[2023-07-18] MEDS ORDERED: CLOP-31 MT (06:04)
[2023-07-18] MEDS ORDERED: LIDO700A30 TP (06:04)
== END 2023-06-15 19:34 | disposition home health service (06) | DRG 293 ==
LOC: ER 07:23 → 7WST 12:51
PROVIDERS: ADMIT Internal Medicine Nephrology; ATTEND Internal Medicine Nephrology
DX: I13.0 Hypertensive heart and chronic kidney disease with heart failure and stage 1 through stage 4 chronic kidney disease, or unspecified chronic kidney disease (principal); G89.4 Chronic pain syndrome; D32.9 Benign neoplasm of meninges, unspecified; I49.5 Sick sinus syndrome; I50.9 Heart failure, unspecified; E11.22 Type 2 diabetes mellitus with diabetic chronic kidney disease; J44.9 Chronic obstructive pulmonary disease, unspecified; F32.A Depression, unspecified; N18.9 Chronic kidney disease, unspecified; I25.10 Atherosclerotic heart disease of native coronary artery without angina pectoris; F41.9 Anxiety disorder, unspecified; E78.5 Hyperlipidemia, unspecified; Z95.5 Presence of coronary angioplasty implant and graft; Z95.0 Presence of cardiac pacemaker; Z88.5 Allergy status to narcotic agent; Z86.73 Personal history of transient ischemic attack (TIA), and cerebral infarction without residual deficits; I70.208 Unspecified atherosclerosis of native arteries of extremities, other extremity; E11.51 Type 2 diabetes mellitus with diabetic peripheral angiopathy without gangrene
CPT/HCPCS: 36415; 70496; 70498; 71045; 80048; 80053; 80305; 80320; 81003; 82962; 83735; 84100; 84443; 84484; 85025; 93005; 93970; 97162; 97167; 97530; 99285; C1893; J0360; J1170; J1200; J1650; J2405; J2920; J2930; J3490; Q9967; G0480

== ENCOUNTER 2023-08-20 20:09 | Emergency (ER) | payer MEDICARE, MEDICAID ==
[~2023-08-20] VITALS: Ht 165.1 cm; Wt 69.0 kg
[~2023-08-20 20:09] MED LIST changes: -ACET-2708 MT; -ALBU18HF2 IH; -ALBU6.7H15 INH; -ALBU90AE IH; -ALPR-339 PO; +ALPR0.25 PO; +AMLO10TA80 PO; -AMLO5TAB88 PO; +CLOP-31 PO; +CRES10 PO; -FURO-152 PO; -GUAI600T26 MT; +LIDO700A30 TP; -LORA-249 MT; +SERT25TA74 PO; -TOPUD MT
[2023-08-20 20:21] VITALS: O2SAT 99
[2023-08-21] LABS: BASOPHILS % 0.7 % (0.0-2.0); EOSINOPHILS % 0.9 % (0.0-5.0); MEAN CORPUSCULAR HEMOGLOBIN 30.9 pg (28.0-32.0); MEAN CORPUSCULAR HGB CONC 34.5 g/dL (31.0-37.0); MEAN CORPUSCULAR VOLUME 89.5 fL (81.0-99.0); MEAN PLATELET VOLUME 8.4 fl (7.4-10.4); MONOCYTES % 10.3 % (2.0-8.0); NEUTROPHILS % 65.1 % (40.0-76.0); PLATELET 186 x1000/uL (130-400); RED BLOOD CELL COUNT 3.24 mill/uL (4.2-5.4); RED CELL DISTRIBUTION WIDTH 13.8 % (11.6-14.6); WHITE BLOOD COUNT 4.9 x1000/uL (4.5-11.0)
[2023-08-21 00:10] LABS: CHLORIDE 110 mEq/L (98-107); SODIUM 140 mEq/L (136-145)
[2023-08-21 00:11] LABS: CARBON DIOXIDE 26 mEq/L (21-32)
[2023-08-21] MEDS: COSYNTROPIN 0.25MG/ML VIAL IV NR (00:11)
[2023-08-21 00:16] LABS: CREATININE 1.1 mg/dL (0.6-1.0); GLUCOSE 100 mg/dL (70-105); UREA NITROGEN BLOOD 26 mg/dL (9-23)
[2023-08-21 00:18] LABS: ALANINE AMINOTRANSFERASE 14 IU/L (10-49); ALBUMIN 3.9 g/dL (3.2-4.8); ASPARTATE AMINOTRANSFERASE 15 IU/L (<34)
[2023-08-21 00:19] LABS: PROTEIN TOTAL 5.9 g/dL (6.0-8.3)
[2023-08-21 02:43] VITALS: BP 101/50; PULSE 66; RESP 14; TEMP 97.8
== END 2023-08-21 03:18 | disposition home or self-care (01) ==
LOC: ER 20:09 → CANBEDREQ 08-22 21:08
DX: Z00.00 Encounter for general adult medical examination without abnormal findings (principal); I50.9 Heart failure, unspecified; J44.9 Chronic obstructive pulmonary disease, unspecified; F32.A Depression, unspecified; I11.0 Hypertensive heart disease with heart failure; Z86.73 Personal history of transient ischemic attack (TIA), and cerebral infarction without residual deficits; Z88.2 Allergy status to sulfonamides; Z98.890 Other specified postprocedural states
CPT/HCPCS: 99285; 80053; 82533 ×2; 85025; 82024; 82088 ×2; 96374; 36415; J0834

== ENCOUNTER 2023-10-10 19:00 | Emergency (ER) | payer MEDICARE, MEDICAID ==
[~2023-10-10] VITALS: Ht 167.6 cm; Wt 75.0 kg
[2023-10-10 19:01] VITALS: TEMP 97.9; O2SAT 98
[2023-10-10] MEDS ORDERED: HYDRALAZINE 20MG/ML VIAL IV ONE (19:30)
[2023-10-10 20:16] LABS: BASOPHILS % 0.9 % (0.0-2.0); EOSINOPHILS % 1.6 % (0.0-5.0); HEMATOCRIT. 34.3 % (36.0-48.0); LYMPHOCYTES % 11.6 % (20.0-50.0); MEAN CORPUSCULAR HEMOGLOBIN 29.4 pg (28.0-32.0); MEAN CORPUSCULAR HGB CONC 32.1 g/dL (31.0-37.0); MEAN CORPUSCULAR VOLUME 91.6 fL (81.0-99.0); MEAN PLATELET VOLUME 7.6 fl (7.4-10.4); MONOCYTES % 8.9 % (2.0-8.0); PLATELET 197 x1000/uL (130-400); RED BLOOD CELL COUNT 3.74 mill/uL (4.2-5.4); RED CELL DISTRIBUTION WIDTH 14.2 % (11.6-14.6); WHITE BLOOD COUNT 4.4 x1000/uL (4.5-11.0)
[2023-10-10 20:26] LABS: CHLORIDE 103 mEq/L (98-107); SODIUM 138 mEq/L (136-145)
[2023-10-10 20:27] LABS: CARBON DIOXIDE 26 mEq/L (21-32)
[2023-10-10 20:32] LABS: CREATININE 1.1 mg/dL (0.6-1.0); GLUCOSE 101 mg/dL (70-105); UREA NITROGEN BLOOD 12 mg/dL (9-23)
[2023-10-10 20:35] LABS: TROPONIN I HIGH SENSITIVITY 9 ng/L (3.0-34)
[2023-10-10 23:21] LABS: TROPONIN I HIGH SENSITIVITY 10 ng/L (3.0-34)
[2023-10-11 00:10] VITALS: BP 135/63; PULSE 63; RESP 16
== END 2023-10-11 00:22 | disposition home or self-care (01) ==
LOC: ER 19:00
DX: R53.1 Weakness (principal); M25.562 Pain in left knee; F41.9 Anxiety disorder, unspecified; I10 Essential (primary) hypertension; Z86.73 Personal history of transient ischemic attack (TIA), and cerebral infarction without residual deficits; Z79.899 Other long term (current) drug therapy
CPT/HCPCS: 36415; 71045; 80048; 83880; 84484; 85025; 93005; 93971; 99285

== ENCOUNTER 2024-01-18 23:53 | Emergency (ER) | payer MEDICARE, MEDICAID ==
[~2024-01-18] VITALS: Ht 157.5 cm; Wt 59.0 kg
[~2024-01-18 23:53] MED LIST changes: -SERT25TA74 PO
[2024-01-19 00:06] VITALS: TEMP 98.3; O2SAT 94
[2024-01-19] MEDS: HYDROCODONE/ACETAMINOPHEN 5/325MG TABLET PO ONE (00:30)
[2024-01-19 01:21] LABS: POTASSIUM 3.4 mEq/L (3.5-5.1)
[2024-01-19 01:22] LABS: CALCIUM 10.7 mg/dL (8.7-10.4)
[2024-01-19 01:27] LABS: CREATININE 1.1 mg/dL (0.6-1.0)
[2024-01-19 01:39] LABS: BASOPHILS % 0.6 % (0.0-2.0); EOSINOPHILS % 1.9 % (0.0-5.0); HEMATOCRIT. 36.9 % (36.0-48.0); HEMOGLOBIN. 11.7 g/dL (12.0-16.0); LYMPHOCYTES % 20.1 % (20.0-50.0); MEAN CORPUSCULAR HEMOGLOBIN 28.7 pg (28.0-32.0); MEAN CORPUSCULAR HGB CONC 31.7 g/dL (31.0-37.0); MEAN CORPUSCULAR VOLUME 90.3 fL (81.0-99.0); MONOCYTES % 9.6 % (2.0-8.0); NEUTROPHILS % 67.8 % (40.0-76.0); PLATELET 176 x1000/uL (130-400); RED BLOOD CELL COUNT 4.08 mill/uL (4.2-5.4); RED CELL DISTRIBUTION WIDTH 14.3 % (11.6-14.6); WHITE BLOOD COUNT 4.5 x1000/uL (4.5-11.0)
[2024-01-19 06:21] VITALS: BP 119/71; PULSE 66; RESP 16; O2SAT 97
== END 2024-01-19 06:30 | disposition home or self-care (01) ==
LOC: ER 23:53
DX: I10 Essential (primary) hypertension (principal); I48.91 Unspecified atrial fibrillation; Z86.73 Personal history of transient ischemic attack (TIA), and cerebral infarction without residual deficits; Z79.899 Other long term (current) drug therapy; Z91.041 Radiographic dye allergy status; Z88.8 Allergy status to other drugs, medicaments and biological substances; Z88.5 Allergy status to narcotic agent
CPT/HCPCS: 36415; 71045; 80048; 85025; 93005; 99285

== ENCOUNTER 2024-07-31 01:07 | Inpatient (IN) | payer MEDICARE, MEDICAID ==
[~2024-07-31] VITALS: Ht 162.6 cm; Wt 61.7 kg
[~2024-07-31 01:07] MED LIST changes: -ALPR0.25 PO; -AMLO10TA80 PO; +AMLO5TAB88 PO; -CRES10 PO; -LIDO700A30 TP; +ROSU40TA PO; +TOPUD PO
[2024-07-31] MEDS: HYDRALAZINE 20MG/ML VIAL IV ONE (03:29)
[2024-07-31 03:35] LABS: BASOPHILS % 1.1 % (0.0-2.0); EOSINOPHILS % 2.9 % (0.0-5.0); HEMATOCRIT. 35.7 % (36.0-48.0); HEMOGLOBIN. 11.7 g/dL (12.0-16.0); MEAN CORPUSCULAR HEMOGLOBIN 28.9 pg (28.0-32.0); MEAN CORPUSCULAR HGB CONC 32.9 g/dL (31.0-37.0); MEAN CORPUSCULAR VOLUME 87.8 fL (81.0-99.0); MEAN PLATELET VOLUME 8.8 fl (7.4-10.4); MONOCYTES % 8.3 % (2.0-8.0); NEUTROPHILS % 52.7 % (40.0-76.0); PLATELET 169 x1000/uL (130-400); RED BLOOD CELL COUNT 4.07 mill/uL (4.2-5.4); RED CELL DISTRIBUTION WIDTH 13.7 % (11.6-14.6); WHITE BLOOD COUNT 4.4 x1000/uL (4.5-11.0)
[2024-07-31 03:36] LABS: CHLORIDE 108 mEq/L (98-107); SODIUM 140 mEq/L (136-145)
[2024-07-31 03:37] LABS: CARBON DIOXIDE 24 mEq/L (21-32)
[2024-07-31 03:38] LABS: CALCIUM 10.7 mg/dL (8.7-10.4)
[2024-07-31 03:42] LABS: CREATININE 1.1 mg/dL (0.6-1.0); GLUCOSE 102 mg/dL (70-105)
[2024-07-31 03:43] LABS: TROPONIN I HIGH SENSITIVITY 9 ng/L (3.0-34); UREA NITROGEN BLOOD 11 mg/dL (9-23)
[2024-07-31 05:47] LABS: TROPONIN I HIGH SENSITIVITY 11 ng/L (3.0-34)
[2024-07-31] MEDS: CLONIDINE 0.1MG TABLET PO ONE (06:01)
[2024-07-31] MEDS: ONDANSETRON HCL 4MG/2ML INJ IV ONE (06:01)
[2024-07-31] MEDS: MORPHINE SULFATE 2 MG/ML INJ (NOT FOR IM USE) IV ONE (06:02)
[2024-07-31] MEDS: HYDROCODONE/ACETAMINOPHEN 5/325MG TABLET PO ONE (06:29)
[2024-07-31] MEDS ORDERED: DIPHENHYDRAMINE 50MG/ML VIAL IV PRN (08:15)
[2024-07-31] MEDS ORDERED: ONDANSETRON HCL 4MG/2ML INJ IV PRN (08:15)
[2024-07-31] MEDS: AMLODIPINE 5MG TABLET PO SCH (09:00)
[2024-07-31] MEDS: METHIMAZOLE 5MG TABLET PO SCH (09:00)
[2024-07-31] MEDS: ASPIRIN 81MG TABLET PO SCH (09:43)
[2024-07-31] MEDS: CLOPIDOGREL 75MG TABLET PO SCH (09:43)
[2024-07-31 10:26] LABS: T4 FREE 1.53 ng/dL (0.89-1.76); THYROID STIMULATING HORMONE < 0.10 uIU/mL (0.55-4.78)
[2024-07-31 12:00] VITALS: BP 164/80; PULSE 72; RESP 18; TEMP 36.3; O2SAT 99
[2024-07-31] MEDS: HYDRALAZINE HCL 25MG TABLET PO SCH (14:57)
[2024-07-31 15:31] LABS: TROPONIN I HIGH SENSITIVITY 9 ng/L (3.0-34)
[2024-07-31 16:27] VITALS: BP 101/50; PULSE 76; RESP 20; TEMP 36.2; O2SAT 100
[2024-07-31] MEDS: ACETAMINOPHEN 325MG TABLET PO PRN (18:30)
[2024-07-31 18:42] VITALS: BP 136/91; PULSE 70; RESP 20; TEMP 36.8
[2024-07-31 20:00] VITALS: BP 145/58; PULSE 62; RESP 18; TEMP 35.9; O2SAT 99
[2024-07-31] MEDS: FAMOTIDINE 20MG TABLET PO SCH (21:11)
[2024-08-01] VITALS: BP 156/64; PULSE 60; RESP 19; TEMP 36.1; O2SAT 98
[2024-08-01 00:14] LABS: TROPONIN I HIGH SENSITIVITY 8 ng/L (3.0-34)
[2024-08-01 04:00] VITALS: BP 163/85; PULSE 65; RESP 18; TEMP 36.2; O2SAT 100
[2024-08-01] MEDS: CLONIDINE 0.1MG TABLET PO PRN (05:06)
[2024-08-01 06:52] LABS: CARBON DIOXIDE 27 mEq/L (21-32); CHLORIDE 107 mEq/L (98-107); POTASSIUM 3.8 mEq/L (3.5-5.1); SODIUM 141 mEq/L (136-145)
[2024-08-01 06:53] LABS: CALCIUM 10.4 mg/dL (8.7-10.4)
[2024-08-01 06:58] LABS: GLUCOSE 89 mg/dL (70-105); UREA NITROGEN BLOOD 12 mg/dL (9-23)
[2024-08-01 07:08] LABS: HEMATOCRIT. 33.6 % (36.0-48.0); HEMOGLOBIN. 10.9 g/dL (12.0-16.0); LYMPHOCYTES % 26.8 % (20.0-50.0); MEAN CORPUSCULAR HEMOGLOBIN 28.8 pg (28.0-32.0); MEAN CORPUSCULAR HGB CONC 32.6 g/dL (31.0-37.0); MEAN CORPUSCULAR VOLUME 88.3 fL (81.0-99.0); MEAN PLATELET VOLUME 8.9 fl (7.4-10.4); MONOCYTES % 13.3 % (2.0-8.0); NEUTROPHILS % 54.9 % (40.0-76.0); PLATELET 170 x1000/uL (130-400); RED CELL DISTRIBUTION WIDTH 13.4 % (11.6-14.6)
[2024-08-01 08:00] VITALS: BP 112/55; PULSE 80; RESP 18; TEMP 36.4; O2SAT 98
[2024-08-01] MEDS: PAROXETINE HCL 10MG TABLET PO SCH (10:15)
[2024-08-01] MEDS: METHIMAZOLE 5MG TABLET PO SCH (10:40)
[2024-08-01 12:00] VITALS: BP 107/63; PULSE 68; RESP 20; TEMP 36.6; O2SAT 97
[2024-08-01] MEDS ORDERED: HYDROCODONE/ACETAMINOPHEN 5/325MG TABLET PO PRN (15:45)
[2024-08-01 16:00] VITALS: BP 127/49; PULSE 75; RESP 18; TEMP 36.7; O2SAT 100
[2024-08-01] MEDS ORDERED: NALOXONE HCL 0.4MG/ML VIAL IV PRN (16:00)
[2024-08-01] MEDS: LIDOCAINE 5% PATCH TOP SCH (16:43)
[2024-08-01 20:00] VITALS: BP 126/63; PULSE 81; RESP 20; TEMP 37.1; O2SAT 99
[2024-08-01] MEDS: AMLODIPINE 2.5MG TABLET PO SCH (21:31)
[2024-08-02] VITALS: BP 153/56; PULSE 67; RESP 20; TEMP 36.4; O2SAT 99
[2024-08-02 04:00] VITALS: BP 169/69; PULSE 77; RESP 20; TEMP 36.6; O2SAT 98
[2024-08-02 06:19] LABS: CALCIUM 10.7 mg/dL (8.7-10.4); POTASSIUM 3.9 mEq/L (3.5-5.1)
[2024-08-02 06:24] LABS: BASOPHILS % 0.9 % (0.0-2.0); EOSINOPHILS % 3.8 % (0.0-5.0); HEMATOCRIT. 34.8 % (36.0-48.0); HEMOGLOBIN. 11.3 g/dL (12.0-16.0); LYMPHOCYTES % 28.3 % (20.0-50.0); MEAN CORPUSCULAR HEMOGLOBIN 28.7 pg (28.0-32.0); MEAN CORPUSCULAR HGB CONC 32.6 g/dL (31.0-37.0); MEAN CORPUSCULAR VOLUME 87.9 fL (81.0-99.0); MEAN PLATELET VOLUME 8.6 fl (7.4-10.4); MONOCYTES % 12.6 % (2.0-8.0); NEUTROPHILS % 54.4 % (40.0-76.0); PLATELET 166 x1000/uL (130-400); RED BLOOD CELL COUNT 3.95 mill/uL (4.2-5.4); RED CELL DISTRIBUTION WIDTH 13.9 % (11.6-14.6); WHITE BLOOD COUNT 3.3 x1000/uL (4.5-11.0)
[2024-08-02 06:25] LABS: CREATININE 1.1 mg/dL (0.6-1.0)
[2024-08-02 07:42] VITALS: BP 128/70; PULSE 65; RESP 19; TEMP 36.3; O2SAT 98
[2024-08-02 09:44] VITALS: BP 121/73; PULSE 60; TEMP 97.9; O2SAT 98
[2024-08-02 12:03] VITALS: BP 121/64; PULSE 68; RESP 18; TEMP 36.7; O2SAT 99
== END 2024-08-10 20:12 | disposition home or self-care (01) | DRG 305 ==
LOC: ER 01:07 → 7WST 05:23 → EDBEDREQTM 05:25 → EDBEDREQ 05:25 → UNDODISIN 08-02 12:50 → 5WST 08-10 17:55
PROVIDERS: ADMIT Internal Medicine Nephrology; ATTEND Internal Medicine Nephrology
DX: I16.0 Hypertensive urgency (principal); I31.39 Other pericardial effusion (noninflammatory); I50.30 Unspecified diastolic (congestive) heart failure; I69.354 Hemiplegia and hemiparesis following cerebral infarction affecting left non-dominant side; E05.20 Thyrotoxicosis with toxic multinodular goiter without thyrotoxic crisis or storm; I13.0 Hypertensive heart and chronic kidney disease with heart failure and stage 1 through stage 4 chronic kidney disease, or unspecified chronic kidney disease; G40.909 Epilepsy, unspecified, not intractable, without status epilepticus; I25.10 Atherosclerotic heart disease of native coronary artery without angina pectoris; N18.2 Chronic kidney disease, stage 2 (mild); F41.9 Anxiety disorder, unspecified; J44.9 Chronic obstructive pulmonary disease, unspecified; E78.5 Hyperlipidemia, unspecified; M54.10 Radiculopathy, site unspecified; I70.218 Atherosclerosis of native arteries of extremities with intermittent claudication, other extremity; F32.A Depression, unspecified; E83.52 Hypercalcemia; I49.5 Sick sinus syndrome; D64.9 Anemia, unspecified; D32.9 Benign neoplasm of meninges, unspecified; I48.91 Unspecified atrial fibrillation; M17.0 Bilateral primary osteoarthritis of knee; Z79.899 Other long term (current) drug therapy; Z79.82 Long term (current) use of aspirin; Z79.02 Long term (current) use of antithrombotics/antiplatelets; Z63.4 Disappearance and death of family member; Z82.49 Family history of ischemic heart disease and other diseases of the circulatory system; Z88.5 Allergy status to narcotic agent; Z91.041 Radiographic dye allergy status; Z95.0 Presence of cardiac pacemaker; Z95.5 Presence of coronary angioplasty implant and graft
CPT/HCPCS: 36415; 71045; 80048; 83880; 84439; 84443; 84481; 84484; 85025; 93005; 99285; J0360; J2270; J2405